=== PATIENT | female | born 2000 | race Caucasian/White ===

== ENCOUNTER 2020-02-16 09:18 | Emergency (ER) | payer BC, SELFPAY ==
[2020-02-16 09:41] VITALS: BP 136/96; PULSE 101; RESP 18; TEMP 36.7; O2SAT 98; BMI 31.2
--- NOTE | 2020-02-16 09:49 | HMH.EDUTC ---
[place] Disposition Clinical Impression: Lab test positive for detection of COVID-19 virus Disposition: Home, Self-Care Condition on Discharge: Good Instructions: Preventing the Spread of Coronavirus Discharge Instructions Additional Instructions: *Monitor Temp, Over the counter Motrin or Tylenol as directed/as needed Tylenol every 4 hours and Motrin every 6 hours (as long as your family doctor has told you that you can take it) for fever or pain. and straight to ER if unable to lower temp less than 101.0 after medication given *Warm salt water gargles may help to soothe the throat *Throat Lozenges *Warm fluids like tea with honey may help to soothe the throat *Sleep elevated *Humidifier/Vaporizer *Flonase 2 sprays in each nostril daily but be aware that it may take 2-3 days before you notice improvement Follow up IMMEDIATELY for new or worsening symptoms or no Noticeable improvement over the next 48-72 hours. 911 for difficulty breathing or swallowing You was tested for today for COVID19 your test result should be back in the next 24-48 hours, you may call to the [facility] later today or tomorrow to see if your test results are back and the result [phone] [facility] hours are 9am-9pm You was given a handout with instructions for Self Quarantine and Self isolation for while you wait on test results and what to do if they are positive If you are positive the [facility] Dept will be contacting you also Prescriptions: Fluticasone Propionate [Flonase 50mcg nasal spray 16gm] 1 spr NS DAILY #1 bottle Transmission Status: Pending to [facility]/pharmacy #[id number] Referrals: PCP,No [Primary Care Provider] - As needed Forms: Work/School Release Time of Disposition: 09:53 Medical Decision Making - Pedro Inquiry Pt receiving controlled substance: No Pedro was queried for this patient: No Vital Signs: 02/16/20 09:41 Temperature 98.0 F Temperature Source Oral Pulse Rate [Radial] 101 H Respiratory Rate 18 Blood Pressure [Right Arm] 136/96 H Blood Pressure Mean [Right Arm] 109 Blood Pressure Source [Right Arm] Automatic Cuff Blood Pressure Position [Right Arm] Sitting 02 Sat by Pulse Oximetry 98 Oxygen Delivery Method Room Air Orders (Tests/Meds): ORDERS Category Date Time Status Covid-19 Nasal PCR ([facility]) Routine Lab 11/19/20 09:35 Ordered [place] HPI - General Stated complaint: covid exposure,tested positive Time Seen by Provider: 02/16/20 09:49 Mode of Arrival: Ambulatory Source of Information: Patient Limitations: No Limitations Description of Symptoms (Recalled from Triage Doc. by RN): tested positive for covid [facility]ought the [facility]. states they called her and told her to come here to have a pcr covid test. 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 and was tested at the [facility] States they called her and told her that she was positive and told her to come to the [facility] to get tested to make sure that it wasnt a false positive States that she has had some clear drainage from her nose but no other symptoms and no fever - Related Data Previous Rx's Medication Instructions Recorded Fluticasone Propionate [Flonase 1 spr NS DAILY #1 bottle 02/16/20 50mcg nasal spray 16gm] Allergies Allergy/AdvReac Type Severity Reaction Status Date / Time No Known Allergies Allergy Verified 02/16/20 09:44 - Worker's Comp Is this a Worker's Comp case?: No [facility] History - Hepatitis A Screen Drug use history?: No High risk sexual behaviors?: No History of sexually transmitted infection?: No Currently employed?: No Childcare worker?: No Do you have indoor plumbing?: Yes Do you have electricity?: Yes Attestation [facility]
[2020-02-16 10:09] VITALS: BP 136/96; PULSE 101; RESP 18; TEMP 36.7; O2SAT 98
[2020-02-17 09:50] LABS: Covid-19 Nasal PCR Sendout Lex POSITIVE
--- NOTE | 2020-02-17 15:01 | PC.NURSE ---
PT NOTIFIED OF POSITIVE RESULT
== END 2020-02-16 10:10 | disposition home or self-care (01) ==
PROVIDERS: Emergency Provider Nurse Practitioner
DX: U07.1 COVID-19 (principal)
CPT/HCPCS: 99201; U0004